=== PATIENT | male | born 1995 | race Caucasian/White ===

== ENCOUNTER 2018-12-31 00:37 | Inpatient (IN) | payer OTHER ==
[2018-12-31] VITALS (113 sets, daily range): BP systolic 105–166; BP diastolic 31–94; PULSE 63–139; TEMP 97.7–98.8; O2SAT 77–100
[~2018-12-31] VITALS: Wt 72.0 kg
--- NOTE | 2018-12-31 04:30 | NUR ---
HR UP TO 130'S. PATIENT AWAKE AND RESTLESS AT THIS TIME. DR. MORAES NOTIFIED. INSTRUCTED TO CONTINUE WITH PROPOFOL FOR SEDATION.
--- NOTE | 2018-12-31 04:43 | NUR ---
PLACE PT ON VENT WITH NO COMPLICATION. ALARMS CHECKED. HOB. CUFF CHECKED. WILL CONTINUE TO MONITOR PT
--- NOTE | 2018-12-31 05:13 | NUR ---
In writing expressed that he wishes to be more sedated. Per doctor Joshua increased Propofol from 30 to 50 mcg/kg/min. VS stable. Will continue to monoitor.
--- NOTE | 2018-12-31 05:24 | NUR ---
0407 - PT ARRIVED IN UNIT. 0419 - RESTRAINTS INITIATED. 0431 - PROPOFOL INITIATED. 0435 - BAEZ CATH AND OGT PLACED.
--- NOTE | 2018-12-31 05:37 | NUR ---
Patient awake and alert and communicating via paper and pen. Requesting to listen to music or TV. TV turned on. Pain medication initiated per patient request. Pain 7 out of 10 and located in throat; worse with deep breaths and coughing.
[2018-12-31 06:10] LABS: ARTERIAL BLD GAS O2 SATURATION 98.9 % (92-100); ARTERIAL BLD GAS TCO2 CT 26.5; ARTERIAL BLOOD GAS BASE EXCESS 1.4 (-2-2); ARTERIAL BLOOD GAS HCO3 25.3 meq/L (22-26); ARTERIAL BLOOD GAS pH 7.44 (7.35-7.45)
--- NOTE | 2018-12-31 06:14 | NUR ---
Called Dr. Seymour per Dr. Lewis as a consult for this patient. Stated that this patient would need discharge paperwork signed and to be seen by hospitalist prior to leaving. Dr. Lewis in contact with med about transfer. Dr. Lewis stated would re-contact the team around [address] update[address] Seymour stated he would see patient when he comes but is not coming in at this time for a non-urgent situation.
[2018-12-31 07:10] LABS: HEMATOCRIT 42.2 % (42.0-52.0); HEMOGLOBIN 14.4 g/dl (13.5-18.0); MEAN CELL VOLUME 87 fl (80.0-100.0); MEAN CORPUSCULAR HEMOGLOBIN 30 pg (27.0-31.0); MEAN CORPUSCULAR HGB CONC 34 g/dl (33.0-37.0); MEAN PLATELET VOLUME 11.5 fl (7.4-10.4); PLATELET COUNT 222 K/mm3 (130-400); RED BLOOD COUNT 4.85 M/mm3 (4.20-5.60); REDCELL DISTRIBUTION WIDTH-CV 12.3 % (11.5-14.5)
--- NOTE | 2018-12-31 07:10 | NUR ---
Report recieved from Delores FONTENOT. Patient rests quietly when not stimulated, but does arouse when name called. Follows directions without error. Denies needs at this time. Tube placement verified as well as medications at this time.
[2018-12-31 07:16] LABS: PROTHROMBIN TIME 11.9 SECONDS (9.7-12.8)
[2018-12-31 07:31] LABS: CALCIUM 8.7 mg/dL (8.4-10.2); CREATININE, serum 0.8 (0.66-1.25); PHOSPHOROUS 3.8 mg/dL (2.5-4.5); POTASSIUM 3.8 mmol/L (3.4-5.0)
[2018-12-31 07:51] LABS: EOSINOPHIL 2 % (0-4); LYMPHOCYTE 20 % (20.0-51.0); NEUTROPHILS 75 % (42.0-75.2); PLATELET ESTIMATE NORMAL (NORMAL)
--- NOTE | 2018-12-31 08:10 | NUR ---
Nurse to nurse report called to Michelle FONTENOT at [facility]. Patient transferring to room HC 301. 2037 Spoke with Eloisa Gutiérrez with patient update and plans for transfer. Will update if anything changes, agreeable. Sgt. Sandoval continues at bedside with patient, updated as well.
--- NOTE | 2018-12-31 08:33 | NUR ---
[facility] here, report given to them. Care transferred to them at this time. WIll assist with whatever needed.
--- NOTE | 2018-12-31 09:15 | NUR ---
Patient transferred to [facility] via helicopter at this time.
== END 2018-12-31 09:16 | disposition short-term general hospital (02) | DRG 208 ==
LOC: COL.ER 00:37 → SDCO 02:05 → ICU 04:07 → SDCO 04:15 → ICU 05:03
PROVIDERS: Internal Medicine Gastroenterology; ADMIT Internal Medicine Pulmonary Disease
PROC: 0DJ08ZZ Inspection of Upper Intestinal Tract, Via Natural or Artificial Opening Endoscopic (ICD-10-PCS; principal; 2018-12-31 02:30)
PROC: 5A1935Z Respiratory Ventilation, Less than 24 Consecutive Hours (ICD-10-PCS; 2018-12-31 02:30)
DX: T17.598A Other foreign object in bronchus causing other injury, initial encounter (principal); J98.11 Atelectasis; X58.XXXA Exposure to other specified factors, initial encounter; Y93.89 Activity, other specified
CPT/HCPCS: A4314; J0330; J2250; J2704; J2710; J3010; J7120